=== PATIENT | female | born 1960 | race Caucasian/White ===

== ENCOUNTER 2016-06-15 08:37 | Day surgery (SDC) | payer BC ==
--- NOTE | ~2016-06-15 | EGD ---
EGD REPORT [facility] [address] [place]. [address] NAME: NIKKI WEBBER : 58 STATUS : REG [facility]#: [id number] AGE: 55 ADM/REG DATE : 06/15/16 MR#: [id number] REPORT SERV DATE: 06/15/16 DICTATED BY: MADELINE JIANG DATE: 06/15/16 REPORT STATUS : Draft TRANSCRIBED BY: [employer] DATE: 06/15/16 [facility] Patient Name: Nikki Webber Date of : 1960 Attending MD: MADELINE JIANG MD Procedure Date No Time: 06/15/2016 Procedure: Colonoscopy Indications: Colon cancer screening in patient at increased risk: Family history of colon polyps Referring MD: SASKIA MG Medicines: as per anesthesia Complications: No immediate complications. Procedure: Pre-Anesthesia Assessment: - ASA Grade Assessment: II - A patient with mild systemic disease. After I obtained informed consent, the scope was passed under direct vision. Throughout the procedure, the patient's blood pressure, pulse, and oxygen saturations were monitored continuously. The PCF [id number] was introduced through the anus and advanced to the cecum, identified by appendiceal orifice and ileocecal valve. The colonoscopy was somewhat difficult due to significant looping and a tortuous colon. The patient tolerated the procedure. The quality of the bowel preparation was adequate to identify polyps. Findings: The perianal and digital rectal examinations were normal. A sessile polyp was found in the cecum. The polyp was 5 mm in size. The polyp was removed with a jumbo cold forceps. Resection and retrieval were complete. Internal hemorrhoids were found during endoscopy and were mild. Impression: - One 5 mm polyp in the cecum. Resected and retrieved. - Internal hemorrhoids. Recommendation: - Await pathology results. - Repeat colonoscopy for surveillance based on pathology results. Procedure Code(s): --- Professional --- 65179, Colonoscopy, flexible, proximal to splenic flexure; with biopsy, single or multiple Diagnosis Code(s): --- Professional --- EGD REPORT [address] [address] NAME: NIKKI WEBBER : [birth year] STATUS : REG [facility]#: [id number] AGE: 55 ADM/REG DATE : 06/15/16 MR#: [id number] REPORT SERV DATE: 06/15/16 DICTATED BY: MADELINE JIANG. DATE: 06/15/16 REPORT STATUS : Draft TRANSCRIBED BY: [employer] DATE: 06/15/16 D12.0, Benign neoplasm of cecum K64.8, Other hemorrhoids Z12.11, Encounter for screening for malignant neoplasm of colon Z83.71, Family history of colonic polyps CPT copyright 2013 [employer]. All rights reserved. The codes documented in this report are preliminary and upon sexual assault counsellor review may be revised to meet current compliance requirements. MADELINE JIANG MD 06/15/2016 11:32 AM This report has been signed electronically. Number of Addenda: 0 Note Initiated On: 06/15/2016 10:53 AM Scope Withdrawal Time 0 hours 12 minutes 1 second
[~2016-06-15 08:37] MED LIST: CYMBALTA30 PO; FISH-EPA1000 MG PO; PRAV10 PO; PROMETRIUM200 MG PO; VITAMIN D1000 UNI1 PO; VIVELLE SY0.0375 MG/ TOP; WELLSR100 PO; WELLSR150 PO; ZYRTEC-D ALG PO
== END 2016-06-15 23:59 | disposition home health service (06) ==
LOC: DMU 08:37
PROVIDERS: Internal Medicine Gastroenterology
PROC: 0DBH8ZX Excision of Cecum, Via Natural or Artificial Opening Endoscopic, Diagnostic (ICD-10-PCS; principal; 2016-06-15 10:30)
DX: Z12.11 Encounter for screening for malignant neoplasm of colon (principal); D12.0 Benign neoplasm of cecum; K64.8 Other hemorrhoids; F41.9 Anxiety disorder, unspecified; F32.9 Major depressive disorder, single episode, unspecified; M79.7 Fibromyalgia; E78.00 Pure hypercholesterolemia, unspecified; Z83.71 Family history of colonic polyps; Z88.8 Allergy status to other drugs, medicaments and biological substances; Z87.891 Personal history of nicotine dependence; Z98.890 Other specified postprocedural states
CPT/HCPCS: 88305